=== PATIENT | male | born 1975 | race Caucasian/White ===

== ENCOUNTER 2024-04-08 12:48 | Emergency (ER) | payer BC, SELFPAY ==
[2024-04-08] VITALS (16 sets, daily range): BP systolic 141–172; BP diastolic 96–108; PULSE 51–76; RESP 10–26; TEMP 36–37.1; O2SAT 97–100
--- NOTE | 2024-04-08 13:15 | DI.RAD_ITS ---
Exam(s) XR ANKLE LT 2V EXAM: XR ANKLE LT 2V CLINICAL HISTORY: post reduction TECHNIQUE: 2D digital imaging was performed. Three views. COMPARISON: None FINDINGS: BONES: Displaced fracture from the posterior malleolus. The medial and lateral malleoli appear intac t. No bony destructive lesion is seen. JOINTS: Significant posterior subluxation of the talus with respect to the distal tibia. SOFT TISSUE: Swelling. IMPRESSION: Fracture of the posterior malleolus. Marked posterior subluxation of the talus with respect to the t ibia. DATA REPOSITORY: RADIATION DOSE DELIVERED:
--- NOTE | 2024-04-08 13:30 | DI.RAD_ITS ---
Exam(s) XR TIB/FIB LT XR ANKLE LT COMPLETE EXAM: XR ANKLE LT COMPLETE CLINICAL HISTORY: post reduction, portable please TECHNIQUE: 2D digital imaging was performed. Three views of the ankle. Two views of the tibia fibu la COMPARISON: CR,XR XR ANKLE LT 2V from 04/08/2024 CR,XR XR TIB/FIB LT from 04/08/2024 FINDINGS: A splint has been placed. The previously noted subluxation of the tibiotalar joint has been reduced. There is a fracture at the posterior malleolus which involves the articular surface. No medial or lateral malleolar fracture seen. The ankle mortise now appears congruous. Additional fracture is pr esent involving the proximal fibula with mild displacement. The knee is unremarkable as visualized.. IMPRESSION: Posterior malleolar fracture. Proximal fibular fracture. Reduction of the previously noted posterio r tibiotalar dislocation. DATA REPOSITORY: RADIATION DOSE DELIVERED:
[2024-04-08] MEDS: Propofol 200 MG/20 ML VIAL 100 MG IVP ×2 (13:31→13:32)
--- NOTE | 2024-04-08 13:43 | RESPIRATORY ---
Respiratory Therapy on emergency stand by for conscious sedation. Ambu bag, ETC02, nasal airway, and suction set up at bedside. Patient placed on 3L to maintain Sp02 >92%. Procedure tolerated well.
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
--- NOTE | 2024-04-08 13:52 | PROC.BLANK_ITS ---
Date of service: 04/08/24 Time of Service: 13:52 Procedures Procedural Sedation Indication: fracture/dislocation reduction ASA Class: I Time of Last PO Intake: 07:00 Preparation: area loss prevention manager applied, pulse oximeter, capnometry used, supplemental O2 applied, suction/airway equipment at bedside and IV secured IV Propofol dose (mg): 120 Patient Tolerated Procedure: well and no complications Complications: none Interventions: oxygen applied Additional Comments: Propofol was given and a 60 mg bolus, followed by 40 mg bolus, followed by 20 mg bolus for the entire procedure. He did well. No significant complications. Patient did briefly descend down to 88% on room air, oxygen was applied and his oxygenation returned to normal. Medical Decision Making Quality:SDOH Health Related Social Needs: No Data to Display
[2024-04-08] MEDS: HYDROmorphone 2 MG/ML SYR 1 MG IVP (13:56)
[2024-04-08] MEDS: Ketorolac 30 MG/ML VIAL IVP (13:56)
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
--- NOTE | 2024-04-08 15:09 | NUR.NOTE ---
EKG assigned in [place] to [facility]. Faxed demographics to [facility] to read the EKG. Nursing Note:
== END 2024-04-08 15:17 | disposition home or self-care (01) ==
LOC: ER 15:05
PROVIDERS: Emergency Provider Physician Assistant
DX: S82.862A Displaced Maisonneuve's fracture of left leg, initial encounter for closed fracture (principal); V18.0XXA Pedal cycle driver injured in noncollision transport accident in nontraffic accident, initial encounter
CPT/HCPCS: 27788; 96374; 96375; 99284; 73590; 73600; 73610; 99283; J1170; J1885; J2704